=== PATIENT | female | born 1940 | race Caucasian/White ===

== ENCOUNTER 2025-06-09 11:56 | Emergency (ER) | payer MEDICARE, OTHER ==
[~2025-06-09] VITALS: Ht 165.1 cm; Wt 77.3 kg
--- NOTE | 2025-06-09 12:58 | RADIOLOGY REPORT ---
EXAM: CT CT HEAD INDICATION: Mechanical Fall w/ blood thinners TECHNIQUE: CT of the head without intravenous contrast. Radiation Dose : 1. Head: CT Dose: CTDI volume is 55.3 mGy. Dose-length product is 960.4 mGy*cm The dose indicators for CT are the volume Computed Tomography (CT) Dose Index (CTDIvol) and the Dose Length Product (DLP), and are measured in units of mGy and mGy-cm, respectively. These indicators are not patient dose, but values generated from the CT scanner acquisition factors. The report includes radiation exposure data for exposures received during this examination. COMPARISON: None FINDINGS: There is no evidence of acute intracranial hemorrhage, extra-axial collection, mass effect, midline shift, herniation or hydrocephalus. The ventricles, sulci and cisterns are age appropriate. The baker-white differentiation is intact. Patchy periventricular and subcortical white matter hypoattenuation is nonspecific but may be related to small vessel ischemic disease. The visualized paranasal sinuses and mastoid air cells are clear. The surrounding soft tissues and osseous structures are unremarkable. IMPRESSION: No acute intracranial abnormality. Radiation optimization: All CT scans at this facility use at least one of these dose optimization techniques: automated exposure control mA and/or kV adjustment per patient size (includes targeted exams where dose is matched to clinical indication) or iterative reconstruction.
--- NOTE | 2025-06-09 13:44 | RADIOLOGY REPORT ---
CLINICAL INDICATION: fall LEFT HIP TECHNIQUE: DI HIP UNILATERAL 2 VIEWS Comparison: None FINDINGS/IMPRESSION: : Comminuted minimally displaced fracture of the left superior pubic ramus adjacent to the pubic symphysis. Minimally displaced fracture of the left inferior pubic ramus. Moderate degenerative changes of bilateral hips.
[2025-06-09] MEDS: ondansetron/PF 4mg/2ml inj IV ONE (15:46)
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
[2025-06-09] MEDS: morphine 4 MG/ML inj SYRINge IV ONE (15:47)
[2025-06-09] MEDS ORDERED: APIX5TAB3 PO (16:49)
[2025-06-09] MEDS ORDERED: MAGN200T PO (16:49)
[2025-06-09] MEDS ORDERED: SOTA80TA73 PO (16:49)
[2025-06-09] MEDS ORDERED: ROSU10TA98 PO (16:49)
--- NOTE | 2025-06-09 17:10 | RADIOLOGY REPORT ---
Indication: pubis symphisus and ramus FX Technique: CT axial images of the pelvis are obtained without contrast. Coronal and sagittal reformats were obtained. Radiation Dose Information: CTDI volume is 28 mGy. Dose-length product is 899 mGy*cm Comparison: None FINDINGS: Abdominal aortic atherosclerotic disease. Colonic diverticular disease. Relatively nondisplaced fracture of the right pubic ramus. Fractures of the left superior / inferior pubic rami, pubic symphysis. Moderate bilateral sacroiliac degenerative joint disease. Left pelvic sidewall hematoma measuring 10 x 3.6 cm which compresses upon the bladder. [id number] degenerate changes bilateral hips. IMPRESSION: Fractures of the left superior / inferior pubic rami, left pubic symphysis. Relatively nondisplaced fracture of the right pubic ramus /symphysis. Left pelvic sidewall hematoma/ hemorrhage measuring 10 x 3.6 cm compressing upon the bladder. Recommend surgical consultation If there is clinical concern for bladder injury, CT cystogram can be obtained. Findings discussed with Dr Arredondo at 06/09/2025 05:10 PM, and acknowledged receipt and understanding of the findings. ..
[2025-06-09] MEDS ORDERED: HYDROmorphone inj. 0.5 MG/0.5 ML DISP.SYRIN IV PRN (17:30)
[2025-06-09] MEDS ORDERED: magnesium sulf-water 2g/50mL 50 ML IV PRN (17:30)
[2025-06-09] MEDS ORDERED: ondansetron/PF 4mg/2ml inj IV PRN (17:30)
[2025-06-09] MEDS ORDERED: magnesium hydroxide 30ml (MOM) UD suspension PO PRN (17:30)
[2025-06-09] MEDS ORDERED: potassium Cl 20 mEq SR tablet PO PRN ×2 (17:30)
[2025-06-09] MEDS ORDERED: normal saline 1000ml 1,000 ML IV SCH (17:30)
[2025-06-09] MEDS ORDERED: magnesium sulf-water 4G/100mL 100 ML IV PRN (17:30)
[2025-06-09] MEDS ORDERED: mag hydrox/Alum hydrox/simeth 30ml oral suspension PO PRN (17:30)
[2025-06-09] MEDS ORDERED: HYDROmorphone/PF 0.2 MG/ML SYRINGE IV PRN (17:30)
[2025-06-09] MEDS ORDERED: potassium Cl 40MEQ/1/2NS 520ml 520 ML IV PRN (17:30)
[2025-06-09] MEDS ORDERED: magnesium Cl slow-release 64mg tablet PO PRN (17:30)
[2025-06-09 17:46] LABS: MEAN PLATELET VOLUME 7.9 FL (7.4-10.4); RED CELL DISTRIBUTION WIDTH 13.1 % (11.5-14.5)
[2025-06-09] MEDS ORDERED: HUM PROTHROMB CPLX-LANS 0 UNIT IV ONE (17:50)
[2025-06-09] MEDS: PERFLUTREN PROTEIN-A MICROSPHR (Optison) 0.22 MG/ML 3ML VIAL IV ONE (18:02)
[2025-06-09 18:03] LABS: CREATININE 0.88 MG/DL (0.40-0.90); TOTAL CARBON DIOXIDE 28.5 MMOL/L (24-32); eCRCL 43 ML/MIN; eGFR 61 ML/MIN
[2025-06-09] MEDS ORDERED: HUM PROTHROMB CPLX LANS IV ONE (18:20)
[2025-06-09] MEDS ORDERED: HUM PROTHROMB CPLX-LANS 2,000 UNIT in IV piggyback 80 ML IV ONE (18:20)
[2025-06-09] MEDS ORDERED: PIGGYBACK IV ONE (18:20)
[2025-06-09 20:00] VITALS: TEMP 97.5
[2025-06-09] MEDS ORDERED: K and/or MAG REPLACEMENT MC SCH (20:00)
[2025-06-09] MEDS ORDERED: docusate sod 100mg capsule PO SCH (20:00)
[2025-06-09 20:32] LABS: MEAN PLATELET VOLUME 7.9 FL (7.4-10.4); RED CELL DISTRIBUTION WIDTH 13.1 % (11.5-14.5)
--- NOTE | 2025-06-09 20:58 | RADIOLOGY REPORT ---
CTA PELVIS WITH CONTRAST INDICATION: pelvic fracture, hematoma eval for active bleeding COMPARISON: CT CT PELVIS on DOS: 06/09/25, DI HIP UNILATERAL 2 VIEWS on DOS: 06/09/25 TECHNIQUES: Thin axial CT images of the pelvis are obtained in the early arterial phase after intravenous contrast administration. Maximum intensity projection (MIP) images were provided. 3-D images were constructed on independent workstation. Radiation optimization: All CT scans at this facility use at least one of these dose optimization techniques: Automated exposure control mA and/or kV adjustment per patient size (includes targeted exams where dose is matched to clinical indication) or iterative reconstruction. CONTRAST ADMINISTERED: 100 mL omnipaque 350 intravenously RADIATION DOSE: CTDI: 34 mGy DLP: 1087 mGy-cm FINDINGS: There is no pathologic distention of the visualized large or small bowel. The appendix is normal. There is extensive atherosclerosis. There is approximately 80% focal narrowing of the right superficial femoral artery just after the origin. There is acute, nondisplaced fracture of the left pubic bone and the left superior and inferior pubic rami. There is hematoma surrounding the left pubic bone. There is a left pelvic side wall hematoma measuring approximately 11.1 x 4.6 cm, not significantly changed from the prior study. There is active arterial extravasation at the superior aspect of the fractured left pubic bone. On delayed images there is pooling of the extravasated contrast in the dependent portions of the left pelvic sidewall hematoma. There is mass effect on the urinary bladder. There is no leakage of contrast from the urinary bladder. There is extensive sigmoid diverticulosis without evidence of diverticulitis. IMPRESSION: Active arterial extravasation into the left pelvic wall hematoma from a small artery at the superficial aspect of the fractured left pubic ramus. The hematoma appears similar in size to the study performed more than 2 hours prior. Fractured left pubic bone and left superior and inferior pubic rami. Active arterial extravasation Critical Result: Active Bleeding Findings discussed with Dr. Agustin at 06/09/2025 07:48 PM, and acknowledged receipt and understanding of the findings. #CRITICAL#
[2025-06-09 21:00] VITALS: BP 129/87; PULSE 97; O2SAT 94
[2025-06-09 21:22] VITALS: RESP 12
[2025-06-09] MEDS: morphine 4 MG/ML inj SYRINge IV STA (21:22)
[2025-06-09] MEDS: tranexamic acid 1gm/0.7% sal. 100 ML IV ONE (21:22)
== END 2025-06-09 21:52 | disposition short-term general hospital (02) ==
LOC: ER 11:57 → UNDOADMIN 17:02 → ED HOLD 17:02 → UNDODISIN 21:50 → ER 21:52
DX: S72.092A Other fracture of head and neck of left femur, initial encounter for closed fracture (principal); I48.91 Unspecified atrial fibrillation; K21.9 Gastro-esophageal reflux disease without esophagitis; Z90.49 Acquired absence of other specified parts of digestive tract; Z90.710 Acquired absence of both cervix and uterus; Z88.8 Allergy status to other drugs, medicaments and biological substances; Z79.899 Other long term (current) drug therapy; V87.8XXA Person injured in other specified noncollision transport accidents involving motor vehicle (traffic), initial encounter; Y93.89 Activity, other specified; Y92.89 Other specified places as the place of occurrence of the external cause; Y99.8 Other external cause status
CPT/HCPCS: 36415; 70450; 72191; 72192; 73502; 80053; 85025; 86885; 86900; 86901; 96365; 96375; 96376; 99285; J2270; J2405; J3490; J7030; Q9967; 96374; G0378